=== PATIENT | male | born 1985 | race African-American/Black ===

== ENCOUNTER 2018-12-24 07:24 | Day surgery (SDC) | payer MEDICAID ==
[~2018-12-24] VITALS: Ht 167.6 cm; Wt 72.6 kg
[2018-12-24 09:27] LABS: BASOPHILS 0.3 % (0-2); EOSINOPHILS 3.5 % (0-7); HEMATOCRIT 33.8 % (42.0-54.0); HEMOGLOBIN 10.6 g/dL (13.5-17.5); IMMATURE GRANULOCYTES 0.9 % (0-5); LYMPHOCYTES 24.6 % (15-50); MCH 33.8 pg (26.0-34.0); MCHC 31.4 g/dL (31.0-37.0); MCV 107.6 fL (80.0-100.0); MEAN PLATELET VOLUME 8.9 fL (7.4-10.4); MONOCYTES 13.6 % (2-11); NEUTROPHILS 57.1 % (40-80); PLATELET COUNT 202 10x3/uL (130-400); RBC 3.14 10x6/uL (4.20-6.10); RDW 13.3 % (11.5-14.5); WBC 3.5 10x3/uL (4.8-10.8)
[2018-12-24 09:56] LABS: INR 1.05 (0.85-1.17); PROTIME 13.2 SECONDS (11.6-15.0)
[2018-12-24 10:01] LABS: ANION GAP 15.4 mmol/L (8-16); CALCIUM 10.5 mg/dL (8.5-10.1); CARBON DIOXIDE 21.8 mmol/L (21.0-32.0); CREATININE - SERUM 4.5 mg/dL (0.6-1.3); POTASSIUM - SERUM 5.2 mmol/L (3.5-5.1)
[2018-12-24 10:07] VITALS: Ht 167.6 cm; Wt 72.6 kg
--- NOTE | 2018-12-24 10:35 | NUR ---
1035-SPOKE WITH SEMAJ WITH RENAL([phone])REGARDING ABNORMAL LAB AND ELEVATED IV. NO NEW ORDERS RECEIVED. PT IS ABLE TO CONTINUE WITH SURGICAL PLANS
[2018-12-24] MEDS ORDERED: NORVASC5 MG PO (10:37)
[2018-12-24] MEDS ORDERED: METOPROL TAR TAB 100 (10:38)
[2018-12-24] MEDS ORDERED: KEPPRA500 MG PO (10:38)
[2018-12-24] MEDS ORDERED: FUROSEMIDE40 MG PO (10:38)
[2018-12-24] MEDS ORDERED: HYDRALAZINE HCL50 MG (10:38)
[2018-12-24] MEDS ORDERED: VIREAD (10:40)
[2018-12-24] MEDS ORDERED: HYDRALAZINE HCL50 MG PO (10:41)
[2018-12-24] MEDS ORDERED: HYDROCODON-ACE1 EAC7 PO (12:27)
--- NOTE | 2018-12-25 08:28 | OP ---
PATIENT NAME: KASIE RODRIGUEZ MEDICAL RECORD: [id number] :87 LOCATION:D[facility] ADMISSION DATE: SURGEON: IVELISSE RIVERA MD DATE OF OPERATION: 12/24/2018 SURGEON: Ivelisse Rivera MD PREOPERATIVE DIAGNOSES: End-stage renal disease, nonfunctioning HemoSplit catheter. POSTOPERATIVE DIAGNOSES: End-stage renal disease, nonfunctioning HemoSplit catheter. PROCEDURES PERFORMED: 1. Removal of left internal jugular HemoSplit tunneled catheter 2. Placement of a tunneled left internal jugular HemoSplit dialysis catheter with immediate interpretation of fluoroscopy. ANESTHESIA: Local. COMPLICATIONS: None. SPECIMENS: None. Case was clean. OPERATIVE COURSE: After consent was obtained, the patient was taken to the operating room and placed in the supine position on the operating table. Left chest wall was prepped and draped in typical sterile fashion. Timeout was taken to confirm the correct patient and procedure. The area of tunneling was dissected using blunt hemostat dissection as well as sharp Metzenbaum scissor dissection to the cuff was circumferentially dilated. The skin incision was opened. A skin incision was made in the left neck above the palpable area of the catheter. The catheter was dissected out. At this point, with control of the catheter at the neck incision, I cut the catheter in half under fluoroscopy, advance the wire through the distal portion of the catheter into the atriocaval junction. I removed the distal portion of the catheter this time, passed from the field for permanent pathology. The tunnel portion catheter was then removed and sent for permanent pathology. With the wire in place, the dilator and breakaway sheath were then passed through the wire under fluoroscopy to the the atriocaval junction. A new skin incision was made in the left chest wall. The catheter was then tunneled from the skin incision site to the needle stick to the IV access site. The wire and dilator removed under direct fluoroscopic vision. The catheter was inserted through the breakaway sheath and advanced to the atriocaval junction. The breakaway sheath was removed. Both lumens of the catheter were aspirated and then flushed. The catheter was flushed with 30 cc of normal saline mixed with 5000 cc of heparin. The neck skin incision site was closed with 3-0 Vicryl suture. A biodisk was placed. The catheter was secured to the skin using 2-0 nylon suture and a sterile Tegaderm dressing. At the end of the case, all needle and instrument counts were correct. No complications occurred. The patient was transferred to recovery room in satisfactory condition. TRANSINT:[id number] Voice Confirmation ID: [id number] DOCUMENT ID: [id number] OPERATIVE REPORT [id number] KASIE RODRIGUEZ,IEVLISSE Woodson MD at 0828 CC: [id number] DICTATION DATE: 12/24/18 1232 EVENT AV OPERATOR: 12/24/18 1346 [facility] [place] 12/24/18 [id number] [place] [address]
== END 2018-12-24 14:20 | disposition home or self-care (01) ==
LOC: D.OPS 07:24 → D.SP 07:24 → D.RAD 09:00 → EDSTATUS 09:00 → D.OPS 14:20
PROVIDERS: Internal Medicine Nephrology; ATTEND Nurse Practitioner Family
DX: T82.590A Other mechanical complication of surgically created arteriovenous fistula, initial encounter (principal); Y83.9 Surgical procedure, unspecified as the cause of abnormal reaction of the patient, or of later complication, without mention of misadventure at the time of the procedure; N18.6 End stage renal disease